=== PATIENT | female | born 1940 | race Caucasian/White ===

== ENCOUNTER 2017-06-09 07:40 | Day surgery (SDC) | payer OTHER, BC ==
[2017-06-06 09:46] VITALS: BMI 32.5
[2017-06-09] MEDS ORDERED: PROPOFOL 20 ML ONE ×2 (08:42)
[2017-06-09 09:51] VITALS: TEMP 98.2
[2017-06-09 10:52] VITALS: BP 137/55; PULSE 50
--- NOTE | 2017-06-10 16:04 | PATH ---
Surgical Pathology Report Patient Name: HOOD PATTERSON [facility]. Rec. #: [id number] /Age/Gender: 1940 (Age: 76) / F Account: [id number] Location: U-ENDOSCOPY Taken: 06/09/2017 Received: 06/09/2017 Reported: 06/10/2017 Physicians: Daxa Hall M.D. Specimen(s) Received A: BX PROXIMAL TRANSVERSE COLON B: BX RIGHT COLON POLYP C: SIGMOID ANASTOMOSIS POLYP Clinical History Adenoma surveillance Diverticulosis, colon polyps Final Diagnosis A. PROXIMAL TRANSVERSE COLON, POLYP, BIOPSY: COLONIC MUCOSA SHOWING MILD SURFACE HYPERPLASTIC CHANGE. B. RIGHT COLON, POLYP, BIOPSY: TUBULOVILLOUS ADENOMA. C. SIGMOID ANASTOMOSIS POLYP, BIOPSY: HYPERPLASTIC POLYP. Electronically Signed Lizbet Morin M.D. Gross Description A. Received in formalin, labeled "biopsy proximal transverse polyp" are 3 ferguosn, irregular portions of soft tissue averaging 0.2 cm. in greatest dimension. The specimens are submitted in toto in one cassette. B. Received in formalin labeled "right colon polyp," is a 1.2 x 1.0 x 0.2 cm aggregate of ferguson soft tissue fragments. The formalin is filtered and the specimen is entirely submitted in one cassette. C. Received in formalin, labeled "biopsy sigmoid anastomosis polyp" is a ferguson, irregular portion of soft tissue measuring 0.4 cm. in greatest dimension. The specimen is submitted in toto in one cassette. DL/06/09/2017 saudi06/09/2017
== END 2017-06-09 10:52 | disposition home or self-care (01) ==
LOC: JASU-ENDO 07:40
PROVIDERS: ATTEND Internal Medicine Gastroenterology
PROC: 0DBN8ZX Excision of Sigmoid Colon, Via Natural or Artificial Opening Endoscopic, Diagnostic (ICD-10-PCS; 2017-06-09)
PROC: 0DBL8ZX Excision of Transverse Colon, Via Natural or Artificial Opening Endoscopic, Diagnostic (ICD-10-PCS; 2017-06-09)
PROC: 0DBK8ZX Excision of Ascending Colon, Via Natural or Artificial Opening Endoscopic, Diagnostic (ICD-10-PCS; principal; 2017-06-09 09:00)
DX: D12.2 Benign neoplasm of ascending colon (principal); D12.7 Benign neoplasm of rectosigmoid junction; D12.3 Benign neoplasm of transverse colon; K57.30 Diverticulosis of large intestine without perforation or abscess without bleeding; K64.8 Other hemorrhoids
CPT/HCPCS: 88305-TC

== ENCOUNTER 2017-08-05 06:10 | Inpatient (IN) | payer OTHER, BC ==
--- NOTE | 2017-07-28 15:57 | HP ---
DATE OF ADMISSION: 08/06/2017 DATE OF DICTATION: 06/26/2017 DATE OF SURGERY: 08/06/2017 REASON FOR ADMISSION: Right colon tumor. BRIEF HISTORY: This is a 76-year-old female, who was noted to have a tumor in the right colon. The patient underwent a complete polypectomy approximately a year ago for this finding, and within the year, she has a 2-cm recurrent mass. The biopsies were taken and consistent with a tubulovillous adenoma. The area that had been biopsied has been going on since 2013, at which point she underwent her initial colonoscopy, polypectomy, and tattooing with ink. The most recent pathology is consistent with a tubulovillous adenoma. There is no carcinoma identified nor has there ever been. The patient has no family history of colon cancer. Patient denies a change of acute bowel changes or habits. She has had no blood per rectum. Past medical history is significant for heart disease, hypertension, hypercholesterolemia, arthritic changes, skin cancer. PAST SURGICAL HISTORY: Patient has had coronary bypass grafting in 2005, coronary stenting in 2008. She has had left colectomy/low anterior resection in 2011 done in an open fashion by Dr. Alamo. She has had a repair of an umbilical hernia in [address] Alamo. She has had 2 hip replacements, eye surgery. Allergies to PENICILLIN/SULFA. Patient is not sure whether she truly has a penicillin allergy or sulfa allergy. MEDICATIONS: Atenolol, Klor-Con, simvastatin, aspirin, amlodipine, Ranexa, vitamins, Centrum, aspirin, and Zantac. SOCIAL HISTORY: She does not smoke nor drink. PHYSICAL EXAMINATION: Lungs: Clear. Heart: Regular rhythm. Abdomen: Mildly obese, soft, nontender, nondistended. She has a scar in the right lower quadrant. She has a poorly-healed lower midline scar. Rectal: Deferred. Patient just had colonoscopy in June of 2017. IMPRESSION/PLAN: Recurrent right colonic tubulovillous adenoma: This is a 76-year-old female who has been managed medically for a right colonic tubulovillous adenoma. This tumor recurred in the past year, at a significant growth rate of 2 cm, and therefore, the patient is deemed at high risk and would benefit from a right colectomy. The various approaches of colectomy have been discussed with this patient, and given her previous surgical history, I see no obvious benefit to do this laparoscopically and therefore the patient will be scheduled for an open right colectomy with primary anastomosis. The indications, alternatives, and complications of the procedure have been discussed at length. All questions have been answered. Will plan to obtain written consent the day of surgery. SCOTTY VILLAGRAN M.D. [id number] cc: MD Daxa Jimenez MD
[2017-08-05] MEDS ORDERED: LACTATED RINGERS SOLUTION 1,000 ML IV SCH (09:00)
[2017-08-05 09:04] VITALS: BMI 32.5
[2017-08-05 10:18] LABS: MCH 30.8 pg (25.7-33.7); MCHC 33.5 g/dl (32.0-36.0); MEAN CELL VOLUME 91.8 fl (80-96); MEAN PLT VOLUME 8.2 fl (7.5-11.1); PLATELET COUNT 166 K/MM3 (134-434); RDW 14.3 % (11.6-15.6); WHITE BLOOD COUNT 6.8 K/mm3 (4.0-10.0)
[2017-08-05] MEDS ORDERED: PEG 3350/NA SULF BICARB CL/KCL 4000 ML SOLN.RECON PO ONE (11:00)
[2017-08-05 20:41] LABS: ALBUMIN 3.7 g/dl (3.4-5.0); ANION GAP 9 (8-16); CALCIUM 8.6 mg/dL (8.5-10.1); CO2 32 mmol/L (21-32); GLUCOSE,RANDOM 97 mg/dL (74-106)
[2017-08-05 20:47] LABS: ALK PHOS 71 U/L (45-117); BILIRUBIN,TOTAL 0.7 mg/dL (0.2-1.0); CREATININE 0.8 mg/dL (0.55-1.02); SGOT/AST 18 U/L (15-37); SGPT/ALT 23 U/L (12-78); TOT PROT 6.9 g/dl (6.4-8.2)
[2017-08-05] MEDS ORDERED: PT OWN MED DRAWER 7, Y5N ONE (21:50)
[2017-08-06] MEDS ORDERED: ERTAPENEM SODIUM 1 GM in SODIUM CHLORIDE 50 ML IVPB ONE (07:00)
--- NOTE | 2017-08-06 07:42 | EKG ---
Test Reason : Blood Pressure : / mmHG Vent. Rate : 059 BPM Atrial Rate : 059 BPM P-R Int : 188 ms QRS Dur : 110 ms QT Int : 490 ms P-R-T Axes : 052 030 017 degrees QTc Int : 485 ms SINUS BRADYCARDIA NONSPECIFIC ST ABNORMALITY ABNORMAL ECG WHEN COMPARED WITH ECG OF 03-APR-2013 08:48, NO SIGNIFICANT CHANGE WAS FOUND Confirmed by Daniel Blancas ([id number]) on 08/05/2017 2:35:14 PM Also confirmed by MD Yonny, ([id number]), video effects editor DANIEL FINE ([id number]) on 08/06/2017 7:42:24 AM Referred By: Franklin Dietz Confirmed By:Daniel Blancas MD
[2017-08-06] MEDS ORDERED: fentaNYL CITRATE 250 MCG/5 ML VIAL ONE (07:52)
[2017-08-06] MEDS ORDERED: MIDAZOLAM HCL 2 MG/2 ML SINGLE DOSE VIAL ONE (07:52)
[2017-08-06] MEDS ORDERED: PROPOFOL 20 ML ONE ×2 (07:52)
[2017-08-06] MEDS ORDERED: ROCURONIUM BROMIDE 50 MG/5 ML VIAL ONE ×2 (07:53→09:27)
[2017-08-06] MEDS ORDERED: ONDANSETRON 4 MG/2 ML VIAL IVPUSH PRN ×3 (07:56→10:40)
[2017-08-06] MEDS ORDERED: LACTATED RINGERS SOLUTION 1,000 ML IV SCH ×2 (08:00→10:40)
[2017-08-06] MEDS ORDERED: ERTAPENEM SODIUM 1 GM VIAL IVPB ONE (08:05)
[2017-08-06] MEDS ORDERED: LIDOCAINE HCL 2% JELLY (5 ML/TUBE) ONE (09:34)
[2017-08-06] MEDS ORDERED: DEXAMETHASONE SOD PHOSPHATE 4 MG/1 ML VIAL ONE (09:34)
[2017-08-06] MEDS ORDERED: LIDOCAINE HCL/PF 2% SDV 5ML VIAL ONE (09:34)
[2017-08-06] MEDS ORDERED: GLYCOPYRROLATE 0.2 MG/1 ML VIAL ONE (09:34)
[2017-08-06] MEDS ORDERED: ONDANSETRON 4 MG/2 ML VIAL ONE ×2 (09:34→11:18)
[2017-08-06] MEDS ORDERED: NEOSTIGMINE METHYLSULFATE 0.5 MG/ML - 10 ML MDV ONE (09:36)
--- NOTE | 2017-08-06 10:18 | OP ---
Operative Note - Note: Operative Date: 08/06/17 Pre-Operative Diagnosis: colon neoplasm Operation: right hemicolectomy, lysis of adhesions Findings: abdominal mesh, extensive adhesions, tattoo in cecum, no signs of metastatic disease Post-Operative Diagnosis: Same as Pre-op Surgeon: Franklin Dietz Medical Recruiter: Joey Euceda Anesthesiologist/DOG RACES MANAGER: Inna Hallman MD Anesthesia: General Specimens Removed: right colon Estimated Blood Loss (mls): 30
[2017-08-06] MEDS ORDERED: morphine SULFATE 4 MG/ML VIAL IVPB PRN (10:19)
[2017-08-06] MEDS ORDERED: oxyCODONE HCL 5 MG TABLET PO PRN (10:19)
[2017-08-06] MEDS ORDERED: METOPROLOL TARTRATE 5 MG/5 ML VIAL ONE (10:27)
[2017-08-06] MEDS ORDERED: METOPROLOL TARTRATE 5 MG/5 ML VIAL IVPB ONE (11:54)
[2017-08-06] MEDS: D5-1/2NS+20 MEQ KCL - 20 MEQ/1,000 ML INFUS.BAG IV SCH ×2 (13:03→22:49)
[2017-08-06] MEDS: ACETAMINOPHEN 325 MG TABLET (FP) PO PRN (22:44)
[2017-08-07] MEDS ORDERED: PT OWN MED DRAWER 7, Y5N ONE (06:21)
[2017-08-07] MEDS ORDERED: ERTAPENEM SODIUM 1 GM in SODIUM CHLORIDE 50 ML IVPB ONE (07:00)
[2017-08-07 08:00] LABS: MCH 30.3 pg (25.7-33.7); MCHC 33.3 g/dl (32.0-36.0); MEAN CELL VOLUME 91.2 fl (80-96); MEAN PLT VOLUME 8.6 fl (7.5-11.1); PLATELET COUNT 168 K/MM3 (134-434); RDW 14.4 % (11.6-15.6); WHITE BLOOD COUNT 12.8 K/mm3 (4.0-10.0)
--- NOTE | 2017-08-07 08:01 | OP ---
DATE OF OPERATION: 08/06/2017 PREOPERATIVE DIAGNOSIS: Cecal tumor. POSTOPERATIVE DIAGNOSIS: Cecal tumor. PROCEDURE: Laparotomy, extensive lysis of adhesions, open right colectomy, omental patch, peritoneal lavage. SURGEON: Franklin Dietz MD WALLPAPER EMBOSSER HELPER: Joey Euceda DO ANESTHESIA: Inna Hallman MD (general). ESTIMATED BLOOD LOSS: Minimal. SPECIMEN: Right colon. INDICATION FOR PROCEDURE: This is a 76-year-old female with biopsy-proven large villous adenoma of the right colon. The area was tattooed. The adenoma was managed medically. However, now there is an increased rate of growth, and therefore, the patient is here for a surgical resection. MEDICAL COMORBIDITIES: Coronary artery disease status post CABG and stenting. She had a previous left low anterior resection and repair of a large ventral hernia with mesh, hypertension. OPERATIVE FINDINGS: 1. Densely adherent omentum/small bowel to the peritoneal surface of the mesh. 2. Tattooing noted at the level of the cecum opposite the ileocecal valve. 3. No ascites. 4. No peritoneal implants. DESCRIPTION OF PROCEDURE: The patient identified and appropriately positioned on the operating table. After placement of general anesthesia, the abdomen prepped and draped in the usual sterile fashion with ChloraPrep. An incision overlying her previous scar was made deep into subcutaneous tissue. The fascia was divided with the cautery and the peritoneum incised. On entering the peritoneum, there was obvious small bowel adherent to the undersurface of the mesh. The patient has a large piece of what appeared to be Marlex mesh in the abdominal cavity, covering the length of her whole incision from what I suspect is a large previous ventral incisional hernia. These adhesions were noted to be very dense and required a long time to slowly lyse off the abdominal wall. This was done sharply. This took a good over 50% of the case in performing lysis of adhesions. Once the lysis was completely performed, the bowel visualized and examined, and there were no enterotomies or deserosalized areas noted. At this point, attention was now focused to performing the right colectomy. The patient was noted to have dense adhesions of small bowel in the right pelvis. These adhesions were taken down as needed to allow adequate mobilization of the ileum. The right colon itself was taken off the white line of Toldt with the cautery and mobilized up the right gutter to the level of the hepatic flexure. At this point, it was also densely adherent due to the previous scarring from her old surgery, I suspect. These adhesions were taken down with cautery and LigaSure as needed. The gastrocolic ligament was subsequently divided with LigaSure device. The proximal and distal lines of resection were then subsequently chosen. The proximal line of resection was chosen approximately 6-7 inches from the ileocecal valve, and the distal line of resection was chosen just to the right of the left branch of the middle colic vessels. The small bowel was anastomosed to the transverse colon in a functional bvyr-tl-shja fashion with a MARÍA 80 - 3.8-mm stapler. The enterotomy closed with a TA 60 - 3.5-mm stapler as well. The mesentery to the large bowel was then subsequently taken with the LigaSure device. The main vessels (right branch of the middle colic, the right colic, and the ileocolic pedicle) were all taken with LigaSure, as well as being clamped and tied with 0 silk suture. The mesentery to the small bowel was divided with LigaSure device. Four welds placed prior to complete division. The specimen was handed off en bloc and sent to Pathology for gross examination. The right gutter, at this point, was then copiously irrigated with warm saline. The operative field examined, noted to be hemostatic. At this point, the surgeon and academic assistant then scrubbed, changed gloves, gown, Bovie, suction tip. The wound protector was removed as well as the area that was draped. The old drapes were thrown off. The abdomen then copiously irrigated with warm saline once again. Approximately 3 L of saline used. The operative field noted to be hemostatic. The mesenteric defect closed with a running 3-0 chromic suture. The portion of the omentum was then mobilized along with its vascular supply. An omental pedicle patch overlying the transverse staple line with interrupted 3-0 chromic sutures. Bowel returned to its anatomic position. The operative field examined and noted to be hemostatic once again. The fascia of the midline along with the old mesh was then sutured together with a No. 1 PDS suture. The subcutaneous space was then irrigated once again. The subcutaneous fat reapproximated with interrupted, inverted, 3-0 chromic sutures, and the wound was subsequently then packed with Iodoform, Betadine-soaked gauze, followed by 4 x 4 dressings. At the conclusion of this case, sponge and instrument counts were correct. ATTESTATION: A brief operative note handwritten on the preprinted form. [facility] queried prior to giving any narcotics. Mayra TONEY [id number] cc: MD Ted Sapp MD
[2017-08-07 08:04] LABS: ANION GAP 9 (8-16); CALCIUM 8.8 mg/dL (8.5-10.1); CO2 33 mmol/L (21-32); CREATININE 0.8 mg/dL (0.55-1.02); GLUCOSE,RANDOM 144 mg/dL (74-106); MAGNESIUM 1.7 mg/dL (1.8-2.4); PHOSPHOROUS 2.9 mg/dL (2.5-4.9)
--- NOTE | 2017-08-07 08:43 | PN ---
Progress Note (short form) - Note Progress Note: POD #1 - s/p right hemicolectomy under general anesthesia. VSS. Pt. doing well, resting comfortably in bed. No complaints. No apparent anesthetic complications noted. Continue current care.
[2017-08-07] MEDS: PANTOPRAZOLE SODIUM 40 MG VIAL IVPUSH SCH (10:44)
[2017-08-07] MEDS: ENOXAPARIN NA (PORCINE) 40 MG/0.4 ML DISP.SYRIN SQ SCH (10:44)
[2017-08-07] MEDS: D5-1/2NS+20 MEQ KCL - 20 MEQ/1,000 ML INFUS.BAG IV SCH ×2 (10:49→21:01)
[2017-08-07] MEDS ORDERED: POTASSIUM CHLORIDE 30 MEQ in SODIUM CHLORIDE 300 ML IVPB ONE (11:30)
[2017-08-07] MEDS ORDERED: MAGNESIUM SULF 50% (8.12 MEQ/2 ML-1 GM VIAL) IVPB ONE (11:30)
--- NOTE | 2017-08-07 14:25 | PN ---
Progress Note (short form) - Note Progress Note: surgery pt seen and examined. feels well. ambulating. voiding. no discomfort afebrile abd- soft, nt, nd, incision clean Laboratory Tests 08/07/17 06:00 WBC 12.8 H D A/P 1) pod#1- cont npo, ivf, markham out 2) morphine, lortab 3) prophylaxis- lovenox, protonix, oob, spirometer 4) htn- home meds 5) chf- ranexa, asa 6) colon neoplasm- follow path 7) hypokalemia- replaced 8) hypomagnesemia- replaced
[2017-08-07] MEDS ORDERED: ATENOLOL 50 MG TABLET (FP) PO SCH (14:30)
[2017-08-07] MEDS ORDERED: CHLORTHALIDONE 25 MG TABLET PO SCH (14:30)
[2017-08-07] MEDS ORDERED: amLODIPine BESYLATE 10 MG TABLET (FP) PO SCH (14:30)
[2017-08-07] MEDS ORDERED: ASPIRIN COATED 81 MG TABLET.EC PO SCH (14:30)
[2017-08-07] MEDS ORDERED: RANOLAZINE E.R. 500 MG TABLET (FP) ONE (20:57)
[2017-08-07] MEDS: ASPIRIN COATED 81 MG TABLET.EC PO SCH (20:59)
[2017-08-07] MEDS: amLODIPine BESYLATE 10 MG TABLET (FP) PO SCH (20:59)
[2017-08-07] MEDS: CHLORTHALIDONE 25 MG TABLET PO SCH (21:00)
[2017-08-07] MEDS: RANOLAZINE E.R. 1,000 MG TABLET (FP) PO SCH (21:00)
[2017-08-07] MEDS: ATENOLOL 50 MG TABLET (FP) PO SCH (21:00)
[2017-08-08] MEDS: D5-1/2NS+20 MEQ KCL - 20 MEQ/1,000 ML INFUS.BAG IV SCH (05:58)
[2017-08-08 07:31] LABS: BASOPHIL 0.3 % (0-2.0); EOSINOPHIL 1.2 % (0-4.5); MCH 31.1 pg (25.7-33.7); MCHC 33.7 g/dl (32.0-36.0); MEAN CELL VOLUME 92.2 fl (80-96); MEAN PLT VOLUME 8.4 fl (7.5-11.1); NEUTROPHILS 69.9 % (42.8-82.8); PLATELET COUNT 141 K/MM3 (134-434); RDW 14.4 % (11.6-15.6)
[2017-08-08 08:46] LABS: ANION GAP 6 (8-16); CALCIUM 8.4 mg/dL (8.5-10.1); CO2 31 mmol/L (21-32); CREATININE 0.7 mg/dL (0.55-1.02); GLUCOSE,RANDOM 112 mg/dL (74-106); MAGNESIUM 2.1 mg/dL (1.8-2.4); PHOSPHOROUS 1.7 mg/dL (2.5-4.9)
[2017-08-08] MEDS ORDERED: POTASSIUM PHOSPHATE 27 MM in DEXTROSE 5%-WATER - 500 ML IVPB ONE (09:15)
[2017-08-08] MEDS ORDERED: CHLORTHALIDONE 25 MG TABLET PO SCH (10:00)
[2017-08-08] MEDS ORDERED: amLODIPine BESYLATE 10 MG TABLET (FP) PO SCH (10:00)
[2017-08-08] MEDS ORDERED: ATENOLOL 50 MG TABLET (FP) PO SCH (10:00)
[2017-08-08] MEDS ORDERED: ASPIRIN COATED 81 MG TABLET.EC PO SCH (10:00)
[2017-08-08] MEDS ORDERED: RANOLAZINE E.R. 500 MG TABLET (FP) ONE ×2 (10:14→20:49)
[2017-08-08] MEDS ORDERED: PT OWN MED DRAWER 7, Y5N ONE (10:14)
[2017-08-08] MEDS: RANOLAZINE E.R. 1,000 MG TABLET (FP) PO SCH ×2 (10:21→21:19)
[2017-08-08] MEDS: PANTOPRAZOLE SODIUM 40 MG VIAL IVPUSH SCH (10:21)
[2017-08-08] MEDS: amLODIPine BESYLATE 10 MG TABLET (FP) PO SCH (10:22)
[2017-08-08] MEDS: ASPIRIN COATED 81 MG TABLET.EC PO SCH (10:22)
[2017-08-08] MEDS: ENOXAPARIN NA (PORCINE) 40 MG/0.4 ML DISP.SYRIN SQ SCH (10:22)
[2017-08-08] MEDS: ATENOLOL 50 MG TABLET (FP) PO SCH (10:22)
[2017-08-08] MEDS: CHLORTHALIDONE 25 MG TABLET PO SCH (10:22)
--- NOTE | 2017-08-08 13:16 | PN ---
Progress Note (short form) - Note Progress Note: surgery pt seen and examined. remains well. flatus and multiple bm. afebrile abd- soft, nt, nd, incision clean Laboratory Tests 08/08/17 07:20 WBC 9.0 A/P 1) pod#2- liquid diet, stop ivf, 2) morphine, lortab 3) prophylaxis- lovenox, protonix, oob, spirometer 4) htn- home meds 5) chf- ranexa, asa 6) colon neoplasm- follow path 7) hypokalemia- replaced 8) hypomagnesemia- replaced poss d/c in 24-48 hours
--- NOTE | 2017-08-08 16:53 | PATH ---
Surgical Pathology Report Patient Name: HOOD PATTERSON Med. Rec. #: [id number] /Age/Gender: 1940 (Age: 76) / F Account: [id number] Location: [facility] MED/SURG Taken: 08/06/2017 Received: 08/06/2017 Reported: 08/08/2017 Physicians: Franklin Dietz Specimen(s) Received RIGHT HEMICOLECTOMY Clinical History Benign neoplasm of the ascending colon Final Diagnosis ILEUM, CECUM AND RIGHT COLON, HEMICOLECTOMY: CECUM WITH TUBULOVILLOUS ADENOMA. RIGHT COLON WITH TUBULAR ADENOMATA (3) AND HYPERPLASTIC POLYP. UNREMARKABLE TERMINAL ILEUM. VERMIFORM APPENDIX WITH FIBROUS OBLITERATION. TWO BENIGN LYMPH NODES (0/2). Electronically Signed Yashira Day M.D. Gross Description Received in formalin labeled "right hemicolectomy," is an 8 cm in length portion of terminal ileum with an attached 32 cm in length portion of cecum and right colon. The specimen displays 2 open mucosal margins and abundant attached pericolonic adipose tissue. There is a 5.5 cm in length unremarkable vermiform appendix attached at the cecum. The mucosa displays a 1.2 x 0.6 x 0.4 cm ferguson, polypoid lesion in the cecum. There are multiple possible sessile polyps present within the right colon ranging from 0.5-1.3 cm in greatest dimension. All of the polyps appear confined to the mucosa. The remaining mucosa is ferguson with normal folds. Palpation of the pericolonic adipose tissue reveals 2 ferguson, irregular lymph nodes averaging 0.9 cm in greatest dimension. Funeral Attendant sections are submitted in 14 cassettes as follows: 1-proximal mucosal margin of resection; 2-distal mucosal margin of resection; 3-appendix; 4-5-cecal polyp; 6-most proximal right colon polyp; 7-second right colon polyp; 8-9-third right colon polyp; 10-most distal right colon polyp; 11-uninvolved terminal ileum; 12-uninvolved distal right colon; 13-14-one whole bisected lymph node each. 08/07/201708/07/2017
[2017-08-09 07:11] LABS: BASOPHIL 0.5 % (0-2.0); MCH 31.2 pg (25.7-33.7); MCHC 34.1 g/dl (32.0-36.0); MEAN CELL VOLUME 91.3 fl (80-96); MEAN PLT VOLUME 8.3 fl (7.5-11.1); NEUTROPHILS 61.8 % (42.8-82.8); PLATELET COUNT 144 K/MM3 (134-434); RDW 14.9 % (11.6-15.6); WHITE BLOOD COUNT 7.4 K/mm3 (4.0-10.0)
[2017-08-09 07:56] LABS: ANION GAP 6 (8-16); CALCIUM 8.8 mg/dL (8.5-10.1); CO2 32 mmol/L (21-32); CREATININE 0.8 mg/dL (0.55-1.02); GLUCOSE,RANDOM 91 mg/dL (74-106); MAGNESIUM 1.7 mg/dL (1.8-2.4); PHOSPHOROUS 3.2 mg/dL (2.5-4.9)
[2017-08-09] MEDS ORDERED: PT OWN MED DRAWER 7, Y5N ONE ×2 (09:20→12:52)
[2017-08-09] MEDS ORDERED: RANOLAZINE E.R. 500 MG TABLET (FP) ONE ×2 (09:20→19:50)
[2017-08-09] MEDS: ATENOLOL 50 MG TABLET (FP) PO SCH (09:40)
[2017-08-09] MEDS: ASPIRIN COATED 81 MG TABLET.EC PO SCH (09:40)
[2017-08-09] MEDS: RANOLAZINE E.R. 1,000 MG TABLET (FP) PO SCH ×2 (09:40→21:09)
[2017-08-09] MEDS: ENOXAPARIN NA (PORCINE) 40 MG/0.4 ML DISP.SYRIN SQ SCH (09:40)
[2017-08-09] MEDS: amLODIPine BESYLATE 10 MG TABLET (FP) PO SCH (09:40)
[2017-08-09] MEDS: CHLORTHALIDONE 25 MG TABLET PO SCH (09:41)
[2017-08-09] MEDS: PANTOPRAZOLE SODIUM 40 MG VIAL IVPUSH SCH (09:41)
[2017-08-09] MEDS ORDERED: MAGNESIUM SULF 50% (8.12 MEQ/2 ML-1 GM VIAL) IVPB ONE (10:31)
--- NOTE | 2017-08-09 10:31 | PN ---
Progress Note (short form) - Note Progress Note: surgery pt seen and examined. tolerating diet. no complaints. bm and flatus. afebrile abd- soft, nt, nd, incision clean Laboratory Tests 08/09/17 06:30 WBC 7.4 A/P 1) pod#3- liquid diet, surgically stable for discharge but doesn't want to go home because son cant give her a ride, there is no food at home, and it is snowing. 2) lortab 3) prophylaxis- lovenox, protonix, oob, spirometer 4) htn- home meds 5) chf- ranexa, asa 6) colon neoplasm- path benign 7) hypokalemia- resolved 8) hypomagnesemia- resolved poss d/c tomorrow
[2017-08-09] MEDS: ACETAMINOPHEN 325 MG TABLET (FP) PO PRN (21:09)
[2017-08-10 09:20] VITALS: BP 133/67; PULSE 68; TEMP 98
[2017-08-10] MEDS ORDERED: RANOLAZINE E.R. 500 MG TABLET (FP) ONE (09:46)
[2017-08-10] MEDS ORDERED: PT OWN MED DRAWER 7, Y5N ONE ×2 (09:46→10:25)
[2017-08-10] MEDS: ASPIRIN COATED 81 MG TABLET.EC PO SCH (09:47)
[2017-08-10] MEDS: CHLORTHALIDONE 25 MG TABLET PO SCH (09:47)
[2017-08-10] MEDS: amLODIPine BESYLATE 10 MG TABLET (FP) PO SCH (09:48)
[2017-08-10] MEDS: ENOXAPARIN NA (PORCINE) 40 MG/0.4 ML DISP.SYRIN SQ SCH (09:48)
[2017-08-10] MEDS: RANOLAZINE E.R. 1,000 MG TABLET (FP) PO SCH (09:49)
[2017-08-10] MEDS: ATENOLOL 50 MG TABLET (FP) PO SCH (09:49)
[2017-08-10] MEDS ORDERED: PANTOPRAZOLE 40 MG TABLET (FP) PO SCH (10:00)
--- NOTE | 2017-08-10 15:00 | DS ---
DATE OF ADMISSION: 08/05/2017 DATE OF DISCHARGE: 08/10/2017 ADMITTING DIAGNOSIS: Benign neoplasm of ascending colon. DISCHARGE DIAGNOSIS: Benign neoplasm of ascending colon. In addition, the patient has multiple medical problems including heart failure and hypertension. BRIEF HISTORY: This is a 76-year-old female admitted to [facility] on August 05 for surgical management of a polyp of her cecum/ascending colon. She underwent IV hydration and bowel preparation. On August 06, she underwent an open right hemicolectomy. Please reference Dr. Franklin Dietz's operative report for further details. The surgery was without complication. Postoperatively she did well. She is being discharged home today August 10, tolerating a low-fiber diet. She is voiding and ambulating. She will go home off narcotics and she will resume her usual home medications, which are numerous. They include Ranexa for heart failure, Norvasc for hypertension, atenolol and chlorthalidone, as well as multiple vitamins, MiraLax, Zantac, and Zocor. She will follow with Dr. Dietz in approximately 1 to 2 weeks' time to be evaluated for staple removal. At the time of her discharge, her pathology is already back, confirming that this is a benign neoplasm. At the time of her discharge, her abdominal exam is soft and benign, she had no signs of infection. DO GENESIS [id number]
== END 2017-08-10 14:12 | disposition home or self-care (01) | DRG 331 ==
LOC: JSAMEDAYSX 06:10 → UNDOADMIN 06:10 → J8W 06:10 → EDSTATUS 08-06 08:00
PROVIDERS: ADMIT Surgery; ATTEND Surgery
PROC: 0DNW0ZZ Release Peritoneum, Open Approach (ICD-10-PCS; 2017-08-06)
PROC: 3E1M38Z Irrigation of Peritoneal Cavity using Irrigating Substance, Percutaneous Approach (ICD-10-PCS; 2017-08-06)
PROC: 0DTF0ZZ Resection of Right Large Intestine, Open Approach (ICD-10-PCS; principal; 2017-08-06 08:00)
DX: D12.0 Benign neoplasm of cecum (principal); D12.2 Benign neoplasm of ascending colon; E83.39 Other disorders of phosphorus metabolism; I25.10 Atherosclerotic heart disease of native coronary artery without angina pectoris; E78.00 Pure hypercholesterolemia, unspecified; E87.6 Hypokalemia; E83.42 Hypomagnesemia; I11.0 Hypertensive heart disease with heart failure; K21.9 Gastro-esophageal reflux disease without esophagitis; K66.0 Peritoneal adhesions (postprocedural) (postinfection); E66.8 Other obesity; Z68.32 Body mass index [BMI] 32.0-32.9, adult; Z88.0 Allergy status to penicillin; Z95.5 Presence of coronary angioplasty implant and graft; Z95.1 Presence of aortocoronary bypass graft; Z96.643 Presence of artificial hip joint, bilateral; Z85.828 Personal history of other malignant neoplasm of skin
CPT/HCPCS: 36415; 80048; 80053; 83735; 84100; 85025; 85027; 86850; 86900; 86901; 88307-TC; 93005; 93010; 94010; 94760; 97163-GP

== ENCOUNTER 2018-11-27 07:02 | Day surgery (SDC) | payer OTHER, BC ==
[2018-11-26 09:02] VITALS: BMI 32.8
[2018-11-27 08:22] VITALS: TEMP 97.7
[2018-11-27 09:46] VITALS: BP 114/44; PULSE 54
--- NOTE | 2018-11-30 16:02 | PATH ---
Surgical Pathology Report Patient Name: HOOD PATTERSON [facility]. Rec. #: [id number] /Age/Gender: 1940 (Age: 78) / F Account: [id number] Location: [facility]-ENDOSCOPY Taken: 11/27/2018 Received: 11/27/2018 Reported: 11/30/2018 Physicians: Daxa Hall M.D. Specimen(s) Received A: TRANSVERSE COLON POLYP B: SIGMOID COLON POLYP Clinical History Adenoma surveillance Postoperative diagnosis: Colon polyps, diverticulosis Final Diagnosis A. TRANSVERSE COLON, POLYP, BIOPSY: HYPERPLASTIC POLYP. B. SIGMOID COLON, POLYP, BIOPSY: HYPERPLASTIC POLYP. Electronically Signed Yashira Day M.D. Gross Description A. Received in formalin, labeled "biopsy polyp transverse colon" are 3 ferguson, irregular portions of soft tissue ranging from 0.1-0.4 cm. in greatest dimension. The specimens are submitted in toto in one cassette. B. Received in formalin, labeled "biopsy polyp sigmoid colon" are 2 ferguson, irregular portions of soft tissue measuring 0.2 and 0.4 cm. in greatest dimension. The specimens are submitted in toto in one cassette. DL/11/27/2018 saudi11/27/2018
== END 2018-11-27 09:50 | disposition home or self-care (01) ==
LOC: JASU-ENDO 07:02
PROVIDERS: ATTEND Internal Medicine Gastroenterology
PROC: 0DBL8ZX Excision of Transverse Colon, Via Natural or Artificial Opening Endoscopic, Diagnostic (ICD-10-PCS; 2018-11-27)
PROC: 0DBN8ZX Excision of Sigmoid Colon, Via Natural or Artificial Opening Endoscopic, Diagnostic (ICD-10-PCS; principal; 2018-11-27 08:00)
DX: Z12.11 Encounter for screening for malignant neoplasm of colon (principal); Z86.010 Personal history of colon polyps; D12.5 Benign neoplasm of sigmoid colon; D12.3 Benign neoplasm of transverse colon; K57.30 Diverticulosis of large intestine without perforation or abscess without bleeding; K64.8 Other hemorrhoids; Z98.0 Intestinal bypass and anastomosis status
CPT/HCPCS: 88305-TC

== ENCOUNTER 2019-07-24 10:48 | Emergency (ER) | payer OTHER, BC ==
[2019-07-24 11:03] VITALS: BP 136/87; PULSE 69; TEMP 98.4; BMI 32.5
--- NOTE | 2019-07-24 11:17 | PDOC ---
History of Present Illness - General Chief Complaint: Injury Stated Complaint: LEFT FOOT INJURY Time Seen by Provider: 07/24/19 10:50 - History of Present Illness Initial Comments: 07/24/19 11:14 78 F with h/o HTN, HLD, CAD/NE, presenting to ED with L foot pain. Pt states she was walking yesterday when she rolled her ankle inward. Denies falling. Did not hear a crack or pop at the time. She was able to ambulate on it yesterday but this morning noticed increased swelling. Pt reports pain only with weight bearing on the ball of her L foot. Does not feel pain when she leans on the heel of that foot. Denies knee/hip/back pain. Past History - Past Medical History Allergies/Adverse Reactions: Allergies Allergy/AdvReac Type Severity Reaction Status Date / Time Penicillins Allergy Hives Verified 07/24/19 10:50 Sulfa (Sulfonamide Allergy Hives Verified 07/24/19 10:50 Antibiotics) [Sulfa(Sulfonamide Antibiotics)] Home Medications: Ambulatory Orders Multivit-Min/FA/Lycopene/Lut [Centrum Silver Tablet] 1 mg PO DAILY 12/24/11 Ranolazine [Ranexa] 1,000 mg PO BID 12/24/11 Simvastatin [Zocor] 20 mg PO HS 12/24/11 Atenolol/Chlorthalidone [Atenolol-Chlorthal 50-25 Tb] 1 each PO DAILY 12/25/11 Ascorbic Acid [Vitamin C] 1,000 mg PO DAILY 02/17/12 Cholecalciferol (Vitamin D3) [Vitamin D] 5,000 unit PO HS 02/24/12 Amlodipine Besylate [Norvasc -] 10 mg PO DAILY 04/08/13 Potassium Chloride [Klor-Con 10] 10 meq PO BID 11/04/13 Aspirin Coated [Ecotrin -] 81 mg PO DAILY #0 05/27/16 Anemia: No Asthma: No 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) Cardiac Disorders: Yes (Cindy MARTINEZ-2005-CABG X 3-2008 STENTS X 3-LAST STRESS 2013) CVA: Yes (SILENT) COPD: No CHF: No Dementia: No Diabetes: No GI Disorders: Yes (GERD, COLON ADENOMAS, 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) Disorders: Yes (HX BLADDER INFECTIONS-TAKES VITAMIN C) HTN: Yes Hypercholesterolemia: Yes Liver Disease: No Seizures: No Thyroid Disease: No - Surgical History Abdominal Surgery: Yes (REPAIR OF UMBILICAL HERNIA WITH SIGMOID RESECTION) Appendectomy: No Cardiac Surgery: Yes (TRIPLE BYPASS, STENTS) Cholecystectomy: No Lung Surgery: No Neurologic Surgery: No Orthopedic Surgery: Yes (LT HIP REPLACEMENT) - Psycho Social/Smoking Cessation Hx Smoking Status: No Smoking History: Never smoked Have you smoked in the past 12 months: No Number of Cigarettes Smoked Daily: 0 Information on smoking cessation initiated: No Hx Alcohol Use: No Drug/Substance Use Hx: No Substance Use Type: None Hx Substance Use Treatment: No Review of Systems - Review of Systems Comments:: 07/24/19 11:16 "GENERAL/CONSTITUTIONAL: No fever or chills. No weakness. HEAD, EYES, EARS, NOSE AND THROAT: No change in vision. No ear pain or discharge. No sore throat. CARDIOVASCULAR: No chest pain, no shortness of breath, no loss of consciousness RESPIRATORY: No cough, wheezing, or hemoptysis. GASTROINTESTINAL: No nausea, vomiting, diarrhea or constipation. GENITOURINARY: No dysuria, frequency, or change in urination. MUSCULOSKELETAL: + L foot pain, No neck or back pain. SKIN: No rash NEUROLOGIC: No vertigo, no change in strength/sensation. ENDOCRINE: No increased thirst. No abnormal weight change. HEMATOLOGIC/LYMPHATIC: No anemia, easy bleeding, or history of blood clots. ALLERGIC/IMMUNOLOGIC: No hives or skin allergy. *Physical Exam - Vital Signs Last Vital Signs Temp Pulse Resp BP Pulse Ox 98.4 F 69 18 136/87 96 07/24/19 10:48 07/24/19 10:48 07/24/19 10:48 07/24/19 10:48 07/24/19 10:48 - Physical Exam Comments: 07/24/19 11:16 "GENERAL: Awake, alert, and fully oriented, in no acute distress. HEAD: No signs of trauma EYES: PERRLA, EOMI, sclera anicteric, conjunctiva clear ENT: Auricles normal inspection, hearing grossly normal, nares patent, oropharynx clear without exudates. Moist mucosa NECK: Nontender, no stepoffs, Normal ROM, supple, no lymphadenopathy, JVD, or masses LUNGS: Breath sounds equal, clear to auscultation bilaterally. No wheezes, and no crackles HEART: Regular rate and rhythm, normal S1 and S2, no murmurs, rubs or gallops ABDOMEN: Soft, nontender, normoactive bowel sounds. No guarding, no rebound. No masses EXTREMITIES: + TTP base of L 4th and 5th metatarsal, no TTP at lateral or medial malleoli, full ROM NEUROLOGICAL: Cranial nerves II through XII intact. 5/5 strength and sensation in all extremities, Normal speech, normal gait, normal cerebellar function SKIN: Warm, Dry, normal turgor, no rashes or lesions noted. ED Treatment Course - RADIOLOGY Radiology Studies Ordered: Category Date Time Status ANKLE & FOOT-LEFT* [RAD] Stat Radiology 07/24/19 11:04 Ordered Medical Decision Making - Medical Decision Making 07/24/19 11:17 78 F with L foot pain after inverting her L ankle yesterday. - XR 07/24/19 11:53 XR shows fx at base of 5th metatarsal. Likely pseudojones fx. Pt placed in posterior short leg splint, crutches given, non-weight bearing F/u ortho Pt is well appearing, with normal vitals. Clinically stable for DC at this time. I discussed the physical exam findings, ancillary test results and final diagnoses with the patient. I answered all of the patient's questions. The patient was satisfied with the care received and felt comfortable with the discharge plan and treatment plan. The patient agrees to follow up with the primary care physician within 24-72 hours. Discharge - Discharge Information Problems reviewed: Yes Clinical Impression/Diagnosis: Ankle pain, left, Foot pain, left, Levine fracture Condition: Stable - Follow up/Referral Referrals: Ted Covington MD [Primary Care Provider] - Thaddeus Tierney MD [Staff Physician] - Jorden Hudson DO [Staff Physician] - Freddie Rico DO [Staff Physician] - - Patient Discharge Instructions Patient Printed Discharge Instructions: DI for Foot Fracture Additional Instructions: You have a type of fracture in your foot known as a "pseudo-levine fracture". You will need to keep your leg in the splint until you are able to see an orthopedic surgeon. DO NOT bear weight on this leg at any time. If you experience worsening pain, swelling, or any other concerning symptoms, return to the ER immediately. Otherwise, follow up with an orthopedist within 1 week. Call the number provided to make an appointment. - Post Discharge Activity
== END 2019-07-24 12:25 | disposition home or self-care (01) ==
LOC: FER 10:48
PROC: 2W3RX1Z Immobilization of Left Lower Leg using Splint (ICD-10-PCS; principal; 2019-07-24)
DX: S92.352A Displaced fracture of fifth metatarsal bone, left foot, initial encounter for closed fracture (principal); X58.XXXA Exposure to other specified factors, initial encounter; Y93.9 Activity, unspecified; Y92.9 Unspecified place or not applicable; M25.572 Pain in left ankle and joints of left foot; M79.672 Pain in left foot; I10 Essential (primary) hypertension; I25.10 Atherosclerotic heart disease of native coronary artery without angina pectoris; I25.2 Old myocardial infarction; E78.5 Hyperlipidemia, unspecified; Z88.0 Allergy status to penicillin; Z88.2 Allergy status to sulfonamides; Z79.82 Long term (current) use of aspirin; K21.9 Gastro-esophageal reflux disease without esophagitis; Z85.828 Personal history of other malignant neoplasm of skin; Z86.73 Personal history of transient ischemic attack (TIA), and cerebral infarction without residual deficits; Z95.1 Presence of aortocoronary bypass graft; Z95.5 Presence of coronary angioplasty implant and graft; Z98.42 Cataract extraction status, left eye
CPT/HCPCS: 29515; 73610-TC-LT-FY; 73630-TC-LT; 99283-25

== ENCOUNTER 2019-08-10 18:56 | Emergency (ER) | payer OTHER, BC ==
[2019-08-10 19:02] VITALS: BP 140/63; PULSE 62; TEMP 97.8
[2019-08-10] MEDS ORDERED: DIPHTH,PERTUSS(ACELL),TET 0.5 ML DISP.SYRIN IM ONE ×2 (20:03→20:10)
[2019-08-10] MEDS ORDERED: ACETAMINOPHEN 500 MG TABLET (FP) PO ONE (21:18)
[2019-08-10] MEDS ORDERED: ACETAMINOPHEN 500 MG TABLET (FP) ONE (21:27)
--- NOTE | 2019-08-10 21:53 | PDOC ---
Documentation entered by Anne Campos SCRIBE, acting as scribe for Harjit Wilkins MD. Harjit Wilkins MD: This documentation has been prepared by the emmanuelibe, Anne Campos SCRIBE, under my direction and personally reviewed by me in its entirety. I confirm that the documentation accurately reflects all work , treatment, procedures, and medical decision making performed by me. History of Present Illness - General Chief Complaint: Injury Stated Complaint: FACIAL INJURY, LEFT EYE AREA BRUISED History Source: Patient Exam Limitations: No Limitations - History of Present Illness Initial Comments: 08/10/19 20:20 The patient is a 78-year-old female who presents to the emergency department with a left eye injury s/p a fall. The patient reports around 2:30 pm she was walking her zoroastrian hallways, floors were wet and she fell. The patient states she sustained an injury to the left eye and left knee. The patient reports a dull pain around the eye, denies any visual changes. The patient shes been icing the eye however, the swelling has been worsening. The patient reports she called her eye doctor, who referred the patient to the ER. Denies any knee pain. PAST MEDICAL HISTORY: HTN, HLD, CAD/OK PAST SURGICAL HISTORY: L. hip replacement, Triple bypass, stents, Repair of umbilical hernia. FAMILY HISTORY: no pertinent history SOCIAL HISTORY: Pt lives with family and is retired. MEDICATIONS: reviewed ALLERGIES: As per nursing notes Review of system: General: No fevers or chills, no weakness, no weight loss HEENT: +eye pain, with swelling. No change in vision. No sore throat,. No ear pain CardioVascular: No chest pain or shortness of breath Respiratory:No cough, or wheezing. Gastrointestinal: no nausea, vomiting, diarrhea or constipation, No rectal bleeding Genitourinary: No dysuria, hematuria, or frequency Musculoskeletal: No joint or muscle pain or swelling Neurologic: No headache, vertigo, dizziness or loss of consciousness Psychiatric: nor depression Skin: No rashes or easy bruising Endocrine: no increased thirst or abnormal weight change Allergic: no skin or latex allergy All other systems reviewed and normal Physical exam: GENERAL: The patient is awake, alert, and fully oriented, in no acute distress. HEAD: Normal with no signs of trauma. Eyes: Visual acuity done by nursin/30 left eye, 20/200 right eye. The patient reports her baseline is 20/20 left eye and 20/200 right eye. Tenderness to palpation to the periorbital area with ecchymosis of the lateral periorbital area and small abrasion of the upper eyelid laterally, not actively bleeding. Some ecchymosis of the later eye tissue, with minimal swelling. Extraocular muscle intact. EXTREMITIES: Normal range of motion, no edema. NEUROLOGICAL: Normal speech, normal gait. PSYCH: Normal mood, normal affect. SKIN: Warm, Dry, normal turgor, no rashes or lesions noted. 08/10/19 21:51 Assessment and plan: This is a 78-year-old female who comes in after losing her balance and falling hitting the left side of her face and left eye area. Patient does have some ecchymosis and a small superficial abrasion to the left upper eyelid. Otherwise there was some bony tenderness and I got a CAT scan of the orbits and facial bones and head all of which were negative for any acute pathology. Patient was given Tylenol for the pain copies of her CAT scan and discharged home will follow up with her primary care doctor. Patient son accompanied her home Past History - Past Medical History Allergies/Adverse Reactions: Allergies Allergy/AdvReac Type Severity Reaction Status Date / Time Penicillins Allergy Hives Verified 08/10/19 18:57 Sulfa (Sulfonamide Allergy Hives Verified 08/10/19 18:57 Antibiotics) [Sulfa(Sulfonamide Antibiotics)] Home Medications: Ambulatory Orders Multivit-Min/FA/Lycopene/Lut [Centrum Silver Tablet] 1 tab PO DAILY 12/24/11 Ranolazine [Ranexa] 1,000 mg PO BID 12/24/11 Simvastatin [Zocor] 20 mg PO HS 12/24/11 Atenolol/Chlorthalidone [Atenolol-Chlorthal 50-25 Tb] 1 each PO DAILY 12/25/11 Ascorbic Acid [Vitamin C] 500 mg PO DAILY 02/17/12 Cholecalciferol (Vitamin D3) [Vitamin D] 5,000 unit PO HS 02/24/12 Amlodipine Besylate [Norvasc -] 10 mg PO DAILY 04/08/13 Potassium Chloride [Klor-Con 10] 10 meq PO BID 11/04/13 Aspirin Coated [Ecotrin -] 81 mg PO DAILY #0 05/27/16 Anemia: No Asthma: No 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) Cardiac Disorders: Yes (Cindy MARTINEZ-2006-CABG X 3-2009 STENTS X 3-LAST STRESS 2013) CVA: Yes (SILENT) COPD: No CHF: No Dementia: No Diabetes: No GI Disorders: Yes (GERD, COLON ADENOMAS, 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) Disorders: Yes (HX BLADDER INFECTIONS-TAKES VITAMIN C) HTN: Yes Hypercholesterolemia: Yes Liver Disease: No Seizures: No Thyroid Disease: No - Surgical History Abdominal Surgery: Yes (REPAIR OF UMBILICAL HERNIA WITH SIGMOID RESECTION) Appendectomy: No Cardiac Surgery: Yes (TRIPLE BYPASS, STENTS) Cholecystectomy: No Lung Surgery: No Neurologic Surgery: No Orthopedic Surgery: Yes (LT HIP REPLACEMENT) - Psycho Social/Smoking Cessation Hx Smoking Status: No Smoking History: Never smoked Have you smoked in the past 12 months: No Number of Cigarettes Smoked Daily: 0 Information on smoking cessation initiated: No Hx Alcohol Use: Yes (RARELY) Drug/Substance Use Hx: No Substance Use Type: None Hx Substance Use Treatment: No *Physical Exam - Vital Signs Last Vital Signs Temp Pulse Resp BP Pulse Ox 97.8 F 62 18 140/63 97 08/10/19 18:56 08/10/19 18:56 08/10/19 18:56 08/10/19 18:56 08/10/19 18:56 ED Treatment Course - RADIOLOGY Radiology Studies Ordered: Category Date Time Status FACIAL BONES CT W/O CONTRAST [CT] Stat CT Scan 08/10/19 19:[address] WITHOUT CONTRAST [CT] Stat CT Scan 08/10/19 19:51 Completed - Medications Given in the ED: ED Medications Discontinued Medications Generic Name Dose Route Start Last Admin Trade Name Freq PRN Reason Stop Dose Admin Acetaminophen 1,000 mg 08/10/19 21:18 08/10/19 21:29 Tylenol - PO 08/10/19 21:19 1,000 mg ONCE ONE Administration Diphtheria/Tetanus/Acell Pertussis 0.5 ml 08/10/19 20:03 08/10/19 20:21 Boostrix - IM 08/10/19 20:04 0.5 ml ONCE ONE Administration Discharge - Discharge Information Problems reviewed: Yes Clinical Impression/Diagnosis: Abrasion of left eyelid Contusion of face Qualifiers: Encounter type: initial encounter Qualified Code(s): S00.83XA - Contusion of other part of head, initial encounter Condition: Stable Disposition: HOME - Admission No - Follow up/Referral Referrals: Ted Covington MD [Primary Care Provider] - - Patient Discharge Instructions Additional Instructions: For the pain take Tylenol 1000 mg as often this 3-4 times a day if needed. Someone to check on you once tonight during the night. You should be arousable to their normal level of arousability for that time of the night. If you have been vomiting, had a seizure, or you are unable to be aroused or there is a change in your mental status call 911 go back to the nearest emergency department. Take Tylenol as needed for pain. Followup with your primary care doctor Return to the emergency department immediately with ANY new, persistent or worsening symptoms. Continue any medications as previously prescribed by your physician. You should follow up with your primary doctor as soon as possible regarding today's emergency department visit. . Please make sure your doctor reviews the results of your emergency evaluation. Thank you for coming to the Emergency Department today for your care. It was a pleasure to see you today. Please note that your evaluation is INCOMPLETE until you follow-up with your doctor. - Post Discharge Activity
== END 2019-08-10 22:24 | disposition home or self-care (01) ==
LOC: FER 18:56
PROC: 3E0234Z Introduction of Serum, Toxoid and Vaccine into Muscle, Percutaneous Approach (ICD-10-PCS; principal; 2019-08-10)
DX: S00.83XA Contusion of other part of head, initial encounter (principal); W01.0XXA Fall on same level from slipping, tripping and stumbling without subsequent striking against object, initial encounter; Y93.89 Activity, other specified; Y92.22 Religious institution as the place of occurrence of the external cause; Z95.1 Presence of aortocoronary bypass graft; Z96.642 Presence of left artificial hip joint; Z88.0 Allergy status to penicillin; Z88.2 Allergy status to sulfonamides; Z86.73 Personal history of transient ischemic attack (TIA), and cerebral infarction without residual deficits; K21.9 Gastro-esophageal reflux disease without esophagitis; I10 Essential (primary) hypertension; E78.00 Pure hypercholesterolemia, unspecified; Z95.5 Presence of coronary angioplasty implant and graft
CPT/HCPCS: 70450-TC; 70486-TC; 90715; 99282-25

== ENCOUNTER 2019-09-24 15:08 | Emergency (ER) | payer OTHER, BC ==
[2019-09-24 16:09] VITALS: BP 125/57; PULSE 62; TEMP 98.9; BMI 32.4
--- NOTE | 2019-09-24 17:33 | PDOC ---
History of Present Illness - General Chief Complaint: Cold Symptoms Stated Complaint: COLD SYMPTOMS Time Seen by Provider: 09/24/19 17:00 History Source: Patient Exam Limitations: No Limitations - History of Present Illness Initial Comments: 09/24/19 17:44 79 yo female pmh CAD (cardiac bypass an stents) HLD, HTN presents to the ED for 1 week or sneezing, runny nose and hoarse voice with decreased appetite and increased thirst. Pt also admits to 2 episodes of urinary incontinence. Pt states 3 weeks ago she had fevers with RICE and sore throat that have since resolved. Pt states she called her pcp for new symptoms and was told to go to the ED. Denies F/C/N/V, sore throat, RICE, ear pain/discharge, neck pain/ adenopathy, abdominal pain, changes in bowel or bladder habits Past History - Past Medical History Allergies/Adverse Reactions: Allergies Allergy/AdvReac Type Severity Reaction Status Date / Time Penicillins Allergy Hives Verified 09/24/19 16:11 Sulfa (Sulfonamide Allergy Hives Verified 09/24/19 16:11 Antibiotics) [Sulfa(Sulfonamide Antibiotics)] Home Medications: Ambulatory Orders Multivit-Min/FA/Lycopene/Lut [Centrum Silver Tablet] 1 tab PO DAILY 12/24/11 Ranolazine [Ranexa] 1,000 mg PO BID 12/24/11 Simvastatin [Zocor] 20 mg PO HS 12/24/11 Atenolol/Chlorthalidone [Atenolol-Chlorthal 50-25 Tb] 1 each PO DAILY 12/25/11 Ascorbic Acid [Vitamin C] 500 mg PO DAILY 02/17/12 Cholecalciferol (Vitamin D3) [Vitamin D] 5,000 unit PO HS 02/24/12 Amlodipine Besylate [Norvasc -] 10 mg PO DAILY 04/08/13 Potassium Chloride [Klor-Con 10] 10 meq PO BID 11/04/13 Aspirin Coated [Ecotrin -] 81 mg PO DAILY #0 05/27/16 Famotidine 20 mg PO BID 09/24/19 Nitrofurantoin Monohyd/M-Cryst [Macrobid -] 100 mg PO BID #20 capsule 09/24/19 levoFLOXacin [Levaquin -] 500 mg PO DAILY #7 tablet 09/29/19 Anemia: No Asthma: No 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) Cardiac Disorders: Yes (Chela MARTINEZ.-2006-CABG X 3-2009 STENTS X 3-LAST STRESS 2013) CVA: Yes (SILENT) COPD: No CHF: No Dementia: No Diabetes: No GI Disorders: Yes (GERD, COLON ADENOMAS, 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) Disorders: Yes (HX BLADDER INFECTIONS-TAKES VITAMIN C) HTN: Yes Hypercholesterolemia: Yes Liver Disease: No Seizures: No Thyroid Disease: No - Surgical History Abdominal Surgery: Yes (REPAIR OF UMBILICAL HERNIA WITH SIGMOID RESECTION) Appendectomy: No Cardiac Surgery: Yes (TRIPLE BYPASS, STENTS) Cholecystectomy: No Lung Surgery: No Neurologic Surgery: No Orthopedic Surgery: Yes (LT HIP REPLACEMENT) - Psycho Social/Smoking Cessation Hx Smoking Status: No Smoking History: Never smoked Have you smoked in the past 12 months: No Number of Cigarettes Smoked Daily: 0 Hx Alcohol Use: Yes (RARELY) Drug/Substance Use Hx: No Substance Use Type: None Hx Substance Use Treatment: No Review of Systems - Review of Systems Constitutional: Yes: See HPI HEENTM: Yes: See HPI Respiratory: Yes: See HPI Cardiac (ROS): Yes: See HPI ABD/GI: Yes: See HPI : Yes: See HPI Musculoskeletal: Yes: See HPI Integumentary: Yes: See HPI Neurological: Yes: See HPI *Physical Exam - Vital Signs Last Vital Signs Temp Pulse Resp BP Pulse Ox 98.9 F 62 19 125/57 L 95 09/24/19 16:06 09/24/19 16:06 09/24/19 16:06 09/24/19 16:06 09/24/19 16:06 - Physical Exam General Appearance: Yes: Nourished, Appropriately Dressed. No: Apparent Distress HEENT: positive: EOMI Neck: positive: Supple. negative: Rigid Respiratory/Chest: positive: Lungs Clear, Normal Breath Sounds. negative: Respiratory Distress, Accessory Muscle Use, Rapid RR, Crackles, Rales, Rhonchi, Stridor, Wheezing Cardiovascular: positive: Regular Rhythm, Regular Rate, S1, S2. negative: Edema , JVD, Murmur Vascular Pulses: Dorsalis-Pedis (R): 3+, Doralis-Pedis (L): 3+ Gastrointestinal/Abdominal: positive: Flat, Soft. negative: Pulsatile Mass, Protuberent, Distended, Guarding, Rebound, Tenderness Musculoskeletal: negative: CVA Tenderness Extremity: positive: Normal Capillary Refill, Normal Inspection, Normal Range of Motion Integumentary: positive: Normal Color, Dry, Warm Neurologic: positive: Fully Oriented, Alert, Normal Mood/Affect, Normal Response ED Treatment Course - LABORATORY CBC & Chemistry Diagram: 09/24/19 19:02 09/24/19 19:02 Medical Decision Making - Medical Decision Making 09/24/19 18:16 79 yo female pmh CAD (cardiac bypass an stents) HLD, HTN presents to the ED for 1 week or sneezing, runny nose and hoarse voice with decreased appetite and increased thirst. Pt also admits to 2 episodes of urinary incontinence. Pt states 3 weeks ago she had fevers with RICE and sore throat that have since resolved. Pt states she called her pcp for new symptoms and was told to go to the ED. Denies F/C/N/V, sore throat, RICE, ear pain/discharge, neck pain/ adenopathy, abdominal pain, changes in bowel or bladder habits vitals WNL Pt appears comfortable, NAD, lungs clear hoarse voice noted due to increased thirst and urinary frequency, finger stick and UA done pending results s/o to night team Discharge - Discharge Information Problems reviewed: Yes Clinical Impression/Diagnosis: Urinary tract infection Qualifiers: Urinary tract infection type: acute cystitis Hematuria presence: without hematuria Qualified Code(s): N30.00 - Acute cystitis without hematuria Condition: Good Disposition: HOME - Additional Discharge Information Prescriptions: levoFLOXacin [Levaquin -] 500 mg PO DAILY #7 tablet Nitrofurantoin Monohyd/M-Cryst [Macrobid -] 100 mg PO BID #20 capsule - Follow up/Referral Referrals: Ted Covington MD [Primary Care Provider] - - Patient Discharge Instructions Additional Instructions: Take Macrobid 1 tablet twice a day for 10 days this is for the infection in your urine. Drink plenty of fluid and stay well-hydrated Return to the emergency department immediately with ANY new, persistent or worsening symptoms. Continue any medications as previously prescribed by your physician. You should follow up with your primary doctor as soon as possible regarding today's emergency department visit. . Please make sure your doctor reviews the results of your emergency evaluation. Thank you for coming to the Emergency Department today for your care. It was a pleasure to see you today. Please note that your evaluation is INCOMPLETE until you follow-up with your doctor. - Post Discharge Activity
--- NOTE | 2019-09-24 18:57 | PDOC ---
Attending Attestation - Resident Resident Name: Aric Butts - ED Attending Attestation I have performed the following: I have examined & evaluated the patient, The case was reviewed & discussed with the resident, I agree w/resident's findings & plan, Exceptions are as noted - HPI HPI: 09/24/19 18:51 79yo F hx CAD s/p CABG, HLD, HTN presents to the emergency department with 1.5 weeks of cough, runny nose, lethargy, poor appetite, hoarse voice, nonproductive cough, and sensation of thirst. Patient was downstairs seeing Dr. Tierney for her recent left lower extremity fracture back in July 2019. Due to her symptoms she called her PMD Dr. Covington, and his office staff recommended that she come to the emergency department for further evaluation. She denies any associated headaches, dizziness, focal weakness or numbness, chest pain, shortness of breath, abdominal pain, nausea, vomiting, diarrhea, urinary symptoms, lower extremity edema or rashes. She tried a nasal spray for her symptoms within minimal relief. - Physicial Exam PE: 09/24/19 18:57 GENERAL: Awake, alert, and fully oriented, in no acute distress HEAD: No signs of trauma EYES: Sclera anicteric, conjunctiva clear ENT: +nasal congestion, oropharynx clear without exudates. Moist mucosa NECK: Normal ROM, supple, no lymphadenopathy, JVD, or masses LUNGS: Breath sounds equal, clear to auscultation bilaterally. No wheezes, and no crackles HEART: Regular rate and rhythm, normal S1 and S2, no murmurs, rubs or gallops ABDOMEN: Soft, nontender, normoactive bowel sounds. No guarding, no rebound. No masses EXTREMITIES: Normal range of motion, no edema. No clubbing or cyanosis. No cords, erythema, or tenderness NEUROLOGICAL: Normal speech, cranial nerves intact, equal strength and sensation b/l SKIN: Warm, Dry, normal turgor, no rashes or lesions noted. - Medical Decision Making 09/24/19 18:58 79-year-old female presents emergency department with lethargy and URI symptoms. Vitals unremarkable Pt non toxic appearing on exam Differential includes viral syndrome versus pneumonia versus metabolic disarray versus anemia versus ischemia versus UTI Plan: labs CXR UA EKG reassess Case signed out to Dr. Belcher for f/u pending diagnostics, reassessment, and dispo
[2019-09-24 19:26] LABS: HEMOGLOBIN 13.5 GM/dl (10.7-15.3); RBC 4.32 M/mm3 (3.60-5.2); WHITE BLOOD COUNT 4.9 K/mm3 (4.0-10.8)
[2019-09-24 19:27] LABS: HEMATOCRIT 40.5 % (32.4-45.2); MCH 31.2 pg (25.7-33.7); MCHC 33.3 g/dl (32.0-36.0); MEAN CELL VOLUME 93.6 fl (80-96); MEAN PLT VOLUME 7.7 fl (7.5-11.1); PLATELET COUNT 168 K/MM3 (134-434); RDW 13.5 % (11.6-15.6)
[2019-09-24 19:33] LABS: ALBUMIN 3.7 g/dl (3.4-5.0); BILIRUBIN,TOTAL 0.6 mg/dl (0.2-1); CALCIUM 9.2 mg/dl (8.5-10); CREATININE 1.3 mg/dl (0.55-1.3); POTASSIUM 3.5 mmol/L (3.5-5.1); TOT PROT 7.1 g/dl (6.4-8.2)
[2019-09-24] MEDS ORDERED: SODIUM CHLORIDE 1,000 ML IV ONE (19:42)
--- NOTE | 2019-09-24 19:43 | PDOC ---
*Physical Exam - Vital Signs Last Vital Signs Temp Pulse Resp BP Pulse Ox 98.9 F 62 19 125/57 L 95 09/24/19 16:06 09/24/19 16:06 09/24/19 16:06 09/24/19 16:06 09/24/19 16:06 ED Treatment Course - LABORATORY CBC & Chemistry Diagram: 09/24/19 19:02 09/24/19 19:02 - ADDITIONAL ORDERS Additional order review: Laboratory Results 09/24/19 09/24/19 09/24/19 19:02 19:02 17:26 Sodium 134 L Potassium 3.5 Chloride 97 L Carbon Dioxide 26 Anion Gap 11 BUN 28.0 H Creatinine 1.3 Est GFR (CKD-EPI)AfAm 44.87 Est GFR (CKD-EPI)NonAf 38.71 POC Glucometer Random Glucose 116 H Calcium 9.2 Total Bilirubin 0.6 AST 28 ALT 22 Alkaline Phosphatase 53 Creatine Kinase 123 Total Protein 7.1 Albumin 3.7 Urine Color Yellow Urine Appearance Slightly Urine pH 5.0 Urine Protein Trace Urine Glucose (UA) Negative Urine Ketones Negative Urine Blood Negative Urine Nitrite Negative Urine Bilirubin Negative Urine Urobilinogen 0.2 Ur Leukocyte Esterase 2+ 09/24/19 17:24 Sodium Potassium Chloride Carbon Dioxide Anion Gap BUN Creatinine Est GFR (CKD-EPI)AfAm Est GFR (CKD-EPI)NonAf POC Glucometer 106 Random Glucose Calcium Total Bilirubin AST ALT Alkaline Phosphatase Creatine Kinase Total Protein Albumin Urine Color Urine Appearance Urine pH Urine Protein Urine Glucose (UA) Urine Ketones Urine Blood Urine Nitrite Urine Bilirubin Urine Urobilinogen Ur Leukocyte Esterase 09/24/19 09/24/19 19:02 17:24 RBC 4.32 MCV 93.6 MCHC 33.3 RDW 13.5 MPV 7.7 Neutrophils % No Result Required. Lymphocytes % No Result Required. POC Glucometer 106 ED Progress Note - Progress Note Progress Note: 09/24/19 19:43 This patient was transferred to ar from Dr. valencia at 1900 hrs. Patient is an 79-year-old female with upper respiratory tract type symptoms and 2 episodes of urinary incontinence. Work-up was initiated including CBC, comp, chest x-ray and UA. Patient has normal white count and no left shift Patient's chemistries are normal with the exception of a mildly elevated BUN so I will give patient a 500 cc bolus of fluid Patient's EKG shows normal sinus rhythm at a rate of [address]-T wave changes chest x-ray shows no acute pathology there is chronic changes bilateral lung bases when comparison with prior EKG unchanged from October 2013 09/24/19 20:35 Patient urinalysis does show a urinary tract infection. Patient given a gram of ceftriaxone will be sent out on Macrobid as the rest of her blood work is normal, the patient does have a primary care doctor follow-up with 09/24/19 20:35 Discharge - Discharge Information Problems reviewed: Yes Clinical Impression/Diagnosis: Urinary tract infection Qualifiers: Urinary tract infection type: acute cystitis Hematuria presence: without hematuria Qualified Code(s): N30.00 - Acute cystitis without hematuria Condition: Good Disposition: HOME - Admission No - Additional Discharge Information Prescriptions: Nitrofurantoin Monohyd/M-Cryst [Macrobid -] 100 mg PO BID #20 capsule - Follow up/Referral Referrals: Ted Covington MD [Primary Care Provider] - - Patient Discharge Instructions Additional Instructions: Take Macrobid 1 tablet twice a day for 10 days this is for the infection in your urine. Drink plenty of fluid and stay well-hydrated Return to the emergency department immediately with ANY new, persistent or worsening symptoms. Continue any medications as previously prescribed by your physician. You should follow up with your primary doctor as soon as possible regarding today's emergency department visit. . Please make sure your doctor reviews the results of your emergency evaluation. Thank you for coming to the Emergency Department today for your care. It was a pleasure to see you today. Please note that your evaluation is INCOMPLETE until you follow-up with your doctor. - Post Discharge Activity
[2019-09-24] MEDS ORDERED: CEFTRIAXONE 1,000 MG in DEXTROSE 5%-WATER - 50 ML IVPB ONE (19:48)
[2019-09-24] MEDS ORDERED: cefTRIAXone SODIUM 1 GM VIAL ONE (19:55)
[2019-09-24 20:03] LABS: EPITHELIAL CELLS MODERATE /hpf
[2019-09-24 20:04] LABS: PLATELET ESTIMATE ADEQUATE
--- NOTE | 2019-09-25 10:35 | EKG ---
Test Reason : Blood Pressure : / mmHG Vent. Rate : 058 BPM Atrial Rate : 058 BPM P-R Int : 174 ms QRS Dur : 098 ms QT Int : 458 ms P-R-T Axes : 056 026 021 degrees QTc Int : 449 ms SINUS BRADYCARDIA NONSPECIFIC ST ABNORMALITY ABNORMAL ECG WHEN COMPARED WITH ECG OF 05-AUG-2017 09:47, NO SIGNIFICANT CHANGE WAS FOUND Confirmed by CHRISTIANO GUSTAFSON MD ([id number]) on 09/25/2019 10:35:03 AM Referred By: MD BAILEY Confirmed By:CHRISTIANO GUSTAFSON MD
== END 2019-09-24 20:47 | disposition home or self-care (01) ==
LOC: FER 15:08
PROC: 3E03329 Introduction of Other Anti-infective into Peripheral Vein, Percutaneous Approach (ICD-10-PCS; principal; 2019-09-24)
PROC: 3E0337Z Introduction of Electrolytic and Water Balance Substance into Peripheral Vein, Percutaneous Approach (ICD-10-PCS; 2019-09-24)
DX: N30.00 Acute cystitis without hematuria (principal); Z88.0 Allergy status to penicillin; Z88.2 Allergy status to sulfonamides
CPT/HCPCS: 36415; 71046-TC-FY; 80053; 81003; 81015; 82550; 82962; 84484; 85025; 87086; 87186; 93005; 96361; 96365; 99284-25; J7030

== ENCOUNTER 2020-06-21 07:21 | Day surgery (SDC) | payer OTHER, BC ==
--- OUTSIDE RECORDS SUMMARY | 2020-06-16 08:21 | XMS ---
:1940 Author Organization [facility] Support Name Relationship Address Phone RE Unavailable Unavailable Unavailable MICHELLE HYLTON DAUGHTER [address] [place] [address] CHINA PATTERSON SON [address] [place] [address] Re-disclosure Warning The records that you are about to access may contain information from federally- assisted alcohol or drug abuse programs. If such information is present, then the following federally mandated warning applies: This information has been disclosed to you from records protected by federal confidentiality rules (42 CFR part 2). The federal rules prohibit you from making any further disclosure of this information unless further disclosure is expressly permitted by the written consent of the person to whom it pertains or as otherwise permitted by 42 CFR part 2. A general authorization for the release of medical or other information is NOT sufficient for this purpose. The Federal rules restrict any use of the information to criminally investigate or prosecute any alcohol or drug abuse patient.The records that you are about to access may contain highly sensitive health information, the redisclosure of which is protected by Article 27-F of the [facility] Public Health law. If you continue you may haveaccess to information: Regarding HIV / AIDS; Provided by facilities licensed or operated by the [facility] Office of Mental Health; or Provided by the [facility] Office for People With Developmental Disabilities. If such information is present, then the following [facility] mandated warning applies: This information has been disclosed to you from confidential records which are protected by state law. State law prohibits you from making any further disclosure of this information without the specific written consent of the person to whom it pertains, or as otherwise permitted by law. Any unauthorized further disclosure in violation of state law may result in a fine or senior living sentence or both. A general authorization for the release of medical or other information is NOT sufficient authorization for further disclosure. Insurance Providers Payer name Policy type Policy ID Covered Covered alliance party's Policy P shawna / Coverage alliance party ID relationship to [employer] ormation type mka MEDICARE [id number] SP [id number] BC PPO [id number] SP [id number] BC PPO [id number] SP [id number] MEDICARE [id number] SP [id number] A
[2020-06-16 15:46] VITALS: BMI 30.4
--- OUTSIDE RECORDS SUMMARY | 2020-06-21 07:26 | XMS ---
:1940 Author Organization [facility] Support Name Relationship Address Phone RE Unavailable Unavailable Unavailable MICHELLE HYLTON DAUGHTER [address] [facility] [place] [address] CH[place] PATTERSON SON [address] [facility] [place] [address] Re-disclosure Warning The records that you are [...] is protected by Article 27-F of the [facility] Public Health law. If you continue you may haveaccess to information: Regarding HIV / AIDS; Provided by facilities licensed or operated by the [facility] Office of Mental Health; or Provided by the [facility] Office for People With Developmental Disabilities. If such information is present, then the following [facility] mandated warning applies: This information [...] law may result in a fine or skilled nursing sentence or both. A general authorization for the release of medical or other information is NOT sufficient authorization for further disclosure. Insurance Providers Payer name Policy type Policy ID Covered Covered libertarian's Policy P shawna / Coverage libertarian ID relationship to Mak Inf ormation type mak MEDICARE [id number] SP [id number] BC PPO [id number] SP [id number] MEDICARE [id number] SP [id number] BC PPO [id number] SP [id number] MEDICARE [id number] A Results ID Date Data Source [id number] 06/17/2020 12:11:00 PM EDT [facility] Name Value Range Interpretation Description Data Sup porting Code Source(s) Document(s ) SARS [facility] coronavirus 2 RNA This lab was ordered by [facility] and reported by [facility]. Procedure
[2020-06-21] MEDS: TROPICAMIDE 1% OPHTH SOLN 15 ML BOTTLE ONE ×3 (07:50→08:00)
[2020-06-21] MEDS: CIPROFLOXACIN 0.3% EYE DROPS 5 ML BOTTLE ONE ×3 (07:50→08:00)
[2020-06-21] MEDS: PHENYLEPHRINE 2.5% OPHTH SOLN 15 ML BOTTLE ONE ×3 (07:50→08:00)
[2020-06-21] MEDS: CYCLOPENTOLATE 2% OPHTH SOLN 2 ML BOTTLE ONE ×3 (07:50→08:00)
[2020-06-21 07:56] VITALS: TEMP 97.9
[2020-06-21] MEDS ORDERED: PHENYLEPHRINE/KETOROLAC 4 ML VIAL IO ONE (08:54)
[2020-06-21] MEDS ORDERED: MIDAZOLAM HCL 2 MG/2 ML SINGLE DOSE VIAL ONE (09:11)
[2020-06-21 10:27] VITALS: BP 111/61; PULSE 88
--- NOTE | 2020-06-21 11:07 | OP ---
DATE OF OPERATION: 06/21/2020 OPERATIVE PROCEDURE: Lens phacoemulsification with posterior chamber intraocular lens placement, right eye. PREOPERATIVE DIAGNOSIS: Visually significant cataract of right eye. POSTOPERATIVE DIAGNOSIS: Visually significant cataract of right eye. SURGEON: Misael Barajas M.D. ANESTHESIA: MAC. PROCEDURE: The patient was brought to the operating room and placed under monitored anesthesia care by Anesthesia. A drop of tetracaine was then placed over the right eye. The patient was then prepped and draped in the usual sterile manner. A speculum was then placed over the right eye. The eye was then well irrigated with copious amounts of BSS (balanced salt solution). The operating microscope was then moved into position. A paracentesis was performed using a 15-degree blade. At this point 0.5 mL of 1% preservative-free lidocaine was injected into the anterior chamber. Amvisc Plus was then injected into the anterior chamber. A clear corneal incision was then formed using a 2.2-mm keratome. A capsulorrhexis was then performed in a continuous circular fashion beginning with a cystotome completed with a Utrata forceps. Hydrodissection was then performed using BSS on a cannula. The phaco probe was then introduced through the corneal wound and the cataract was removed using the phaco chop technique. Approximately 3 seconds of absolute phaco time was used. The remaining cortex was then removed using irrigation and aspiration with an I/A probe. The capsule was then filled with regular Amvisc and the capsule was noted to be intact. A previously selected foldable posterior chamber intraocular lens was then injected into the capsule through the corneal wound using a lens injector. It was then dialed into position using a Sinskey hook. The Amvisc was then removed using irrigation and aspiration. Miostat was then injected through the paracentesis to constrict the pupil. The paracentesis and corneal wound were then hydrated and noted to be watertight. A drop of Maxitrol was then placed over the eye. The speculum was removed and clear shield was taped over the eye. The patient tolerated the procedure well and there were no surgical complications. The patient was asked to follow up in my office the next day. MISAEL BARAJAS M.D. VÍCTOR/[id number]
[2020-06-21] MEDS ORDERED: BSS (NA/CA/MG/K) BALANCED SALT SOLUTION OPHTH SOLN 15 ML BOTTLE ONE (11:45)
[2020-06-21] MEDS ORDERED: TETRACAINE 0.5% OPHTH SOLN 2 ML BOTTLE ONE (11:45)
[2020-06-21] MEDS ORDERED: CARBACHOL 0.01% INTRA-OCULAR 1.5 ML VIAL ONE (11:45)
[2020-06-21] MEDS ORDERED: LIDOCAINE 1% P/F 10 MG/ML VIAL ONE (11:45)
== END 2020-06-21 10:25 | disposition home or self-care (01) ==
LOC: FASU 07:21
PROVIDERS: ATTEND Ophthalmology
PROC: 08RJ3JZ Replacement of Right Lens with Synthetic Substitute, Percutaneous Approach (ICD-10-PCS; principal; 2020-06-21 09:15)
DX: H26.8 Other specified cataract (principal)
CPT/HCPCS: J1097

== ENCOUNTER → 2020-07-19 | Day surgery (SDC) | payer OTHER, BC ==
[2020-07-17 10:19] VITALS: BMI 30.4
[~2020-07-19] MED LIST: ACETYLCHOLINE 1:100 INTRA-OCUL 20 MG/2 ML KIT ONE; BSS (NA/CA/MG/K) BALANCED SALT SOLUTION OPHTH SOLN 15 ML BOTTLE ONE; CARBACHOL 0.01% INTRA-OCULAR 1.5 ML VIAL ONE; LIDOCAINE 1% P/F 10 MG/ML VIAL ONE; MIDAZOLAM HCL 2 MG/2 ML SINGLE DOSE VIAL ONE; NEO/POLYMYX B SULF/DEXAMETH OPHTHALMIC 5ML BOTTLE ONE; PHENYLEPHRINE/KETOROLAC 4 ML VIAL IO ONE; TETRACAINE 0.5% OPHTH SOLN 2 ML BOTTLE ONE
[2020-07-19] MEDS: TROPICAMIDE 1% OPHTH SOLN 15 ML BOTTLE ONE ×3 (10:35→10:45)
[2020-07-19] MEDS: CIPROFLOXACIN 0.3% EYE DROPS 5 ML BOTTLE ONE ×3 (10:35→10:45)
[2020-07-19] MEDS: PHENYLEPHRINE 2.5% OPHTH SOLN 15 ML BOTTLE ONE ×3 (10:35→10:45)
[2020-07-19] MEDS: CYCLOPENTOLATE 2% OPHTH SOLN 2 ML BOTTLE ONE ×3 (10:35→10:45)
[2020-07-19 12:43] VITALS: TEMP 98.3
[2020-07-19 13:36] VITALS: BP 128/58; PULSE 66
== END | disposition home or self-care (01) ==
LOC: FASU 09:41
PROVIDERS: ATTEND Ophthalmology
PROC: 08RK3JZ Replacement of Left Lens with Synthetic Substitute, Percutaneous Approach (ICD-10-PCS; principal; 2020-07-19 12:10)
DX: H26.8 Other specified cataract (principal)
CPT/HCPCS: J1097

== ENCOUNTER 2021-02-23 14:56 | Emergency (ER) | payer OTHER, BC ==
[2021-02-23 15:11] VITALS: BP 125/69; PULSE 66; TEMP 97.7; BMI 33.5
== END 2021-02-23 16:14 | disposition home or self-care (01) ==
LOC: JERFT 14:56
PROC: 2W3CX1Z Immobilization of Right Lower Arm using Splint (ICD-10-PCS; principal; 2021-02-23)
DX: M25.531 Pain in right wrist (principal)
CPT/HCPCS: 73110-TC-RT-FY; 73130-TC-RT-FY; 99283-25

== ENCOUNTER 2021-07-17 16:20 | Emergency (ER) | payer OTHER, BC ==
[2021-07-17 16:36] VITALS: TEMP 97.8; BMI 33.1
[2021-07-17] MEDS ORDERED: SODIUM CHLORIDE 0.9% 500 ML INFUS.BAG IV ONE (18:38)
[2021-07-17] MEDS ORDERED: MECLIZINE HCL 25 MG TABLET (FP) PO ONE ×2 (19:03→23:01)
[2021-07-17] MEDS ORDERED: ONDANSETRON 4 MG/2 ML VIAL IVPB ONE (19:04)
[2021-07-17 19:16] LABS: BASO % 0.6 % (0-2.0); EOS % 0.2 % (0-4.5); HEMATOCRIT 38.5 % (32.4-45.2); HEMOGLOBIN 13.2 GM/dL (10.7-15.3); LYMPH % 16.1 % (8-40); MCHC 34.4 g/dl (32.0-36.0); MEAN PLT VOLUME 8.2 fl (7.5-11.1); MONO % 8.9 % (3.8-10.2); NEUT % 74.2 % (42.8-82.8); PLATELET COUNT 237 10^3/uL (134-434); RBC 4.14 M/mm3 (3.60-5.2); RDW 14.7 % (11.6-15.6); WHITE BLOOD COUNT 8.8 K/mm3 (4.0-10.0)
[2021-07-17 19:22] LABS: INR 1.07 (0.83-1.09); PROTHROMBIN TIME (PATIENT) 12.5 SEC (9.7-13.0)
[2021-07-17 19:24] LABS: ACTIVATED PTT 30.7 SECONDS (25.2-36.5)
[2021-07-17] MEDS ORDERED: MECLIZINE HCL 25 MG TABLET (FP) ONE ×2 (19:30→23:01)
[2021-07-17 19:38] LABS: CHLORIDE 104 mmol/L (98-107); SODIUM 140 mmol/L (136-145)
[2021-07-17 19:40] LABS: CALCIUM 10.4 mg/dL (8.5-10.1)
[2021-07-17 19:41] LABS: ANION GAP 8 MMOL/L (8-16); BLOOD UREA NITROGEN 28.4 mg/dL (7-18); CO2 28 mmol/L (21-32); GLUCOSE,RANDOM 121 mg/dL (74-106); MAGNESIUM 2.2 mg/dL (1.8-2.4)
[2021-07-17 19:44] LABS: CREATININE 1.2 mg/dL (0.55-1.3); PHOSPHOROUS 3.4 mg/dL (2.5-4.9); SGOT/AST 18 U/L (15-37); SGPT/ALT 25 U/L (13-61)
[2021-07-17 19:45] LABS: BILIRUBIN,TOTAL 0.4 mg/dL (0.2-1); TOT PROT 7.5 g/dl (6.4-8.2)
[2021-07-17 19:47] LABS: ALK PHOS 68 U/L (45-117)
[2021-07-17 21:04] LABS: EPI CELLS 2 /uL (0-25.1); HYALINE CASTS 1 /uL (0-3.1); URINE APPEARANCE CLEAR; URINE BACTERIA 2 /uL (0-1359); URINE BILIRUBIN NEGATIVE (NEGATIVE); URINE COLOR YELLOW; URINE GLUCOSE (UA) NEGATIVE (NEGATIVE); URINE KETONE NEGATIVE (NEGATIVE); URINE LEUK ESTERASE TRACE (NEGATIVE); URINE NITRITE NEGATIVE (NEGATIVE); URINE PROTEIN NEGATIVE (NEGATIVE); URINE RBC 3 /uL (0-23.9); URINE UROBILINOGEN 0.2 mg/dL (0.2-1.0); URINE WBC 1 /uL (0-25.8)
[2021-07-17 22:34] VITALS: BP 128/61; PULSE 67
== END 2021-07-17 23:15 | disposition home or self-care (01) ==
LOC: JER 16:20
DX: R42 Dizziness and giddiness (principal)
CPT/HCPCS: 36415; 70450-TC; 71045-TC-FY; 80053; 81003; 83605; 83735; 84100; 84443; 84484; 85025; 85610; 85730; 87086; 93005; 93010; 99284-25; C9803; U0003; U0005

== ENCOUNTER 2023-01-28 16:40 | Emergency (ER) | payer OTHER, BC ==
[2023-01-28 16:59] VITALS: BP 150/70; PULSE 73; RESP 16; TEMP 98; BMI 31.4
[2023-01-28] MEDS ORDERED: ACETAMINOPHEN 500 MG TABLET (FP) PO ONE (17:16)
[2023-01-28] MEDS ORDERED: ACETAMINOPHEN 325 MG TABLET (FP) ONE (17:18)
== END 2023-01-28 20:57 | disposition home or self-care (01) ==
LOC: FER 16:40
DX: S00.11XA Contusion of right eyelid and periocular area, initial encounter (principal); R07.89 Other chest pain; S80.211A Abrasion, right knee, initial encounter; R51.9 Headache, unspecified; R07.81 Pleurodynia; M25.561 Pain in right knee; W10.9XXA Fall (on) (from) unspecified stairs and steps, initial encounter; Y93.01 Activity, walking, marching and hiking; Y92.009 Unspecified place in unspecified non-institutional (private) residence as the place of occurrence of the external cause
CPT/HCPCS: 70450-TC; 70486-TC; 71045-TC-FY; 72125-TC; 73564-TC-RT-FY; 99284-25

== ENCOUNTER 2024-03-30 05:00 | Day surgery (SDC) | payer OTHER, BC ==
[2024-03-29 11:42] VITALS: BMI 31.3
[2024-03-30 12:36] VITALS: BP 112/83; PULSE 60; RESP 18; TEMP 98
[2024-03-30 13:54] LABS: BASO % 0.7 % (0-2.0); EOS % 1.1 % (0-4.5); HEMATOCRIT 37.5 % (32.4-45.2); HEMOGLOBIN 12.5 GM/dL (10.7-15.3); LYMPH % 15.8 % (8-40); MCH 31.5 pg (25.7-33.7); MCHC 33.3 g/dl (32.0-36.0); MEAN CELL VOLUME 94.4 fl (80-96); MEAN PLT VOLUME 7.6 fl (7.5-11.1); MONO % 8.7 % (3.8-10.2); NEUT % 73.7 % (42.8-82.8); PLATELET COUNT 249 10^3/uL (134-434); RBC 3.98 M/mm3 (3.60-5.2); RDW 17.9 % (11.6-15.6); WHITE BLOOD COUNT 7.7 K/mm3 (4.0-10.0)
[2024-03-30 14:12] LABS: POTASSIUM 3.1 mmol/L (3.5-5.1)
[2024-03-30 14:14] LABS: ALBUMIN 3.9 g/dl (3.4-5.0); CALCIUM 9.6 mg/dL (8.5-10.1)
[2024-03-30 14:17] LABS: CREATININE 1.6 mg/dL (0.55-1.3)
[2024-03-30 14:19] LABS: BILIRUBIN,TOTAL 0.4 mg/dL (0.2-1); TOT PROT 7.5 g/dl (6.4-8.2)
[2024-03-31 08:11] LABS: CARCINOEMBRYONIC ANTIGEN 2.4 ng/mL (0.0-4.7)
== END 2024-03-30 13:37 | disposition home or self-care (01) ==
LOC: JASU-ENDO 05:00
PROVIDERS: ATTEND Internal Medicine Gastroenterology
PROC: 0DBL8ZX Excision of Transverse Colon, Via Natural or Artificial Opening Endoscopic, Diagnostic (ICD-10-PCS; 2024-03-30)
PROC: 0DBL8ZX Excision of Transverse Colon, Via Natural or Artificial Opening Endoscopic, Diagnostic (ICD-10-PCS; 2024-03-30)
PROC: 0DB98ZX Excision of Duodenum, Via Natural or Artificial Opening Endoscopic, Diagnostic (ICD-10-PCS; 2024-03-30)
PROC: 0DB68ZX Excision of Stomach, Via Natural or Artificial Opening Endoscopic, Diagnostic (ICD-10-PCS; 2024-03-30)
PROC: 0DB48ZX Excision of Esophagogastric Junction, Via Natural or Artificial Opening Endoscopic, Diagnostic (ICD-10-PCS; 2024-03-30)
PROC: 0DBP8ZX Excision of Rectum, Via Natural or Artificial Opening Endoscopic, Diagnostic (ICD-10-PCS; principal; 2024-03-30 11:00)
DX: Z12.11 Encounter for screening for malignant neoplasm of colon (principal); D12.3 Benign neoplasm of transverse colon; K62.1 Rectal polyp; K64.8 Other hemorrhoids; K57.30 Diverticulosis of large intestine without perforation or abscess without bleeding; K21.00 Gastro-esophageal reflux disease with esophagitis, without bleeding; K44.9 Diaphragmatic hernia without obstruction or gangrene; K29.70 Gastritis, unspecified, without bleeding; K29.80 Duodenitis without bleeding; K26.3 Acute duodenal ulcer without hemorrhage or perforation; Z86.010 Personal history of colon polyps; Z98.0 Intestinal bypass and anastomosis status; I10 Essential (primary) hypertension
CPT/HCPCS: 36415; 80053; 82378; 82728; 82941; 83540; 83550; 85025; 88305-TC; 88342-TC